=== PATIENT | female | born 1955 | race Caucasian/White ===

== ENCOUNTER 2016-12-10 12:54 | Day surgery (SDC) | payer OTHER ==
[~2016-12-10 12:54] MED LIST: CETI10 PO; CHOLESTEROL MED PO; HTN MEDICATION PO
[2016-12-10 13:45] VITALS: BP 150/90; PULSE 75; RESP 16; TEMP 97.8; O2SAT 99
[2016-12-10 14:28] VITALS: BP 158/84; PULSE 64; RESP 18; O2SAT 100
[2016-12-10 14:40] VITALS: BP 149/77; PULSE 68; RESP 18; O2SAT 100
[2016-12-10] MEDS ORDERED: LIDOCAINE HCL 1% PF 30 ML VIAL ONE (16:32)
[2016-12-10] MEDS ORDERED: SODIUM BICARBONATE 8.4% INJ 50 ML ONE (16:32)
--- NOTE | 2016-12-10 16:49 | RADRPT ---
EXAM DATE/TIME: 12/10/2016 13:53 [place] COMPARISON: No previous studies available for comparison. EXTERNAL COMPARISON: [facility], CT SOFT TISSUE NECK , Nov 18 2016. INDICATIONS : Palpable lymph node. MEDICAL HISTORY : Hypercholesterolemia. Hypertension. SURGICAL HISTORY : Exploratory laparatomy. Bilateral bunionectomy. ENCOUNTER: Initial ACUITY: 7 - 11 months PAIN SCORE: 0/10 LOCATION: Left neck ORGAN: Left lymph node SPECIMENS: Three core specimen(s) submitted for pathologic evaluation. DEVICE: 18 gauge Bio Pince needle Post procedure scanning reveals no hematoma or other complication. The possibility does exist that the tissue obtained will be non-diagnostic. If the sample is non-destiny gnostic a repeat biopsy or surgical biopsy may need to be performed. TECHNIQUE: 1. Ultrasound guidance for needle biopsy. 2. Needle biopsy. The risks, benefits, and alternatives to ultrasound guided needle biopsy were explained to the patien t in detail including the risk of bleeding and infection. Written and verbal informed consent was ob tained. With the patient on the ultrasound table, images were obtained. Overlying skin was prepped and drape d in the usual sterile fashion and Lidocaine was utilized as a local anesthetic. Under direct ultrasound guidance 3, 18 gauge cores were obtained and submitted in formalin and RPMI.. The patient tolerated the procedure well and left the ultrasound suite in stable condition. CONCLUSION: Uncomplicated ultrasound guided needle biopsy. Pathology is pending. Lymph node appears pathologic by ultrasound. Miguel A Bueno MD FACR on December 10, 2016 at 16:46 Board Certified Radiologist. This report was verified electronically.
== END 2016-12-10 14:50 | disposition home or self-care (01) ==
LOC: HROP 12:54 → HRIP 12:55 → HROP 14:50
PROVIDERS: ATTEND Otolaryngology Otolaryngology/Facial Plastic Surgery
DX: R59.9 Enlarged lymph nodes, unspecified (principal); I10 Essential (primary) hypertension; E78.00 Pure hypercholesterolemia, unspecified
CPT/HCPCS: 38505; 76942; 88305; 88333; 88341; 88342